=== PATIENT | female | born 1995 | race Caucasian/White ===

== ENCOUNTER 2020-12-12 09:36 | Emergency (ER) | payer OTHER ==
--- NOTE | 2020-12-12 10:13 | ERPHSYRPT ---
- History of Present Illness Source: patient Patient Subjective Stated Complaint: Pt states "I am having trouble urinating. I can pee a little in warm water like a bath but that is it." Triage Nursing Assessment: Pt presented alert and oriented X 3, skin pwd. Pt ambulates with an upright steady gait, able to speak in clear full sentences. Pt resting comfortably on the bed. Physician History: 25 yo wf w possible urinary retention x 2 days. Pt states that she has only urinated 4-5 times over the last 2 days. She denies abdominal/pelvic/flank pain/dysuria/hematuria/fever/. Pt states that she has some diarrhea. Madrigal placed per nursing wo difficulty w 200ml return. Timing/Duration: day(s) (2 days) Activites at Onset: none Quality: other (No pain) Onset Location: other (No pain) Pain Radiation: none Severity of Pain-Max: none Severity of Pain-Current: none Prior abdominal problems: none Sexual intercourse history: non-contributory Modifying Factors: Improves With: nothing Associated Symptoms: denies symptoms Allergies/Adverse Reactions: No Known Drug Allergies Allergy (Verified 12/12/20 09:48) Home Medications: propylthiouraciL [Propylthiouracil] 50 mg PO HS 12/12/20 [History] Hx Tetanus, Diphtheria Vaccination/Date Given: Yes Hx Influenza Vaccination/Date Given: No Hx Pneumococcal Vaccination/Date Given: No Travel Risk - International Travel Have you traveled outside of the country in past 3 weeks: No - Coronavirus Screening Are you exhibiting any of the following symptoms?: No Close contact with a COVID-19 positive Pt in past 14-21 Days: No - Vaccine Status Have you recieved a Covid-19 vaccination: No - Review of Systems Constitutional: No Symptoms Eyes: No Symptoms Ears, Nose, & Throat: No Symptoms Respiratory: No Symptoms Cardiac: No Symptoms Abdominal/Gastrointestinal: No Symptoms Genitourinary Symptoms: No Symptoms, Urinary Retention Musculoskeletal: No Symptoms Skin: No Symptoms Neurological: No Symptoms Psychological: No Symptoms Endocrine: No Symptoms Hematologic/Lymphatic: No Symptoms Immunological/Allergic: No Symptoms - Past Medical History Pertinent Past Medical History: Yes Endocrine Medical History: Hyperthyroidism - Past Surgical History Past Surgical History: No - Social History Smoking Status: Former smoker Exposure to second hand smoke: Yes Drug Use: none Patient Lives Alone: Yes Significant Family History: no pertinent family hx - Female History Hx Last Menstrual Period: 09/07/2020 Hx Now: (unknown) - Nursing Vital Signs Nursing Vital Signs: Initial Vital Signs Temperature 97.5 F 12/12/20 09:44 Pulse Rate 102 H 12/12/20 09:44 Respiratory Rate 20 12/12/20 09:44 Blood Pressure 142/74 12/12/20 09:44 O2 Sat by Pulse Oximetry 98 12/12/20 09:44 Pain Scale Pain Intensity 0 - Physical Exam General Appearance: no apparent distress Eye Exam: PERRL/EOMI Ears, Nose, Throat Exam: normal ENT inspection, TMs normal, pharynx normal, moist mucous membranes Neck Exam: normal inspection, non-tender Respiratory Exam: normal breath sounds, lungs clear, airway intact Cardiovascular Exam: regular rate/rhythm, normal heart sounds, No murmur Gastrointestinal/Abdomen Exam: soft, normal bowel sounds, distention, No tenderness Back Exam: normal inspection, normal range of motion, No CVA tenderness Extremity Exam: normal inspection, normal range of motion Neurologic Exam: alert, oriented x 3, cooperative, 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 tested, normal mood/affect, nml cerebellar function, nml station & gait, sensation nml, No motor deficits, No sensory deficit Skin Exam: normal color, warm, dry, No rash Lymphatic Exam: No adenopathy SpO2 Interpretation: normal SpO2: 98 O2 Delivery: Room Air - Course Nursing assessment & vital signs reviewed: Yes - Radiology Ultrasound Exam Pelvis Ultrasound: discussed w/radiologist (Neg/No IUP or adnexal mass) Ordered Tests: Active Orders 24 hr Category Date Time Status OB <14 WKS 1ST GESTATION [US] Stat Exams 12/12/20 10:26 Completed CULTURE,URINE Stat Lab 12/12/20 10:04 Received HCG, Quantitative (Inhouse) Stat Lab 12/12/20 11:20 Completed HCG,QUALITATIVE URINE Stat Lab 12/12/20 10:04 Completed UA W/RFX UR CULTURE Stat Lab 12/12/20 10:04 Completed Lab/Rad Data: Laboratory Results 12/12/20 12/12/20 12/12/20 Range/Units 11:20 10:04 10:04 Beta HCG, Quant 118.25 mIU/ml Urine Color YELLOW (YELLOW) Urine Appearance CLEAR (CLEAR) Urine pH 5.0 (5-6) Ur Specific [place] 1.033 (1.005-1.025) Urine Protein 30 (Negative) Urine Ketones TRACE (NEGATIVE) Urine Blood NEGATIVE (0-5) Onur/ul Urine Nitrite NEGATIVE (NEGATIVE) Urine Bilirubin NEGATIVE (NEGATIVE) Urine Urobilinogen 2 (0-1) mg/dL Ur Leukocyte Esterase NEGATIVE (NEGATIVE) Urine WBC (Auto) 3-5 (0-5) /HPF Urine RBC (Auto) 0-2 (0-2) /HPF U Epithel Cells (Auto) RARE (FEW) /HPF Urine Bacteria (Auto) FEW (NEGATIVE) /HPF Urine Mucus (Auto) SLIGHT (NEGATIVE) /HPF Urine Culture Reflexed ALREADY ORDERED (NO) Urine Glucose NEGATIVE (NEGATIVE) mg/dL Urine HCG, Qual POSITIVE (Negative) - Progress Counseled pt/family regarding: lab results, diagnosis, need for follow-up - Departure Departure Disposition: Home Clinical Impression: , Urinary tract infection Condition: Stable Critical Care Time: No Referrals: AMEYA BARBER [Primary Care Provider] - Instructions: Urinary Tract Infection, Adult (DC), Symptoms, Urinary Tract Infections in Additional Instructions: Follow up with an Ob-cotton breeder claire Return to ER for increasing abdominal pain or temperature greeater than 100.5 Prescriptions: Nitrofurantoin Monohyd/M-Cryst [Macrobid 100 mg Capsule] 100 mg PO BID #10 capsule
[2020-12-12 10:19] LABS: Appearance CLEAR (CLEAR); Bilirubin NEGATIVE (NEGATIVE); Blood NEGATIVE Ery/ul (0-5); Glucose NEGATIVE (NEGATIVE); Ketones TRACE (NEGATIVE); Leukocyte Esterase NEGATIVE (NEGATIVE); Mucus SLIGHT /HPF (NEGATIVE); Nitrite NEGATIVE (NEGATIVE); Protein,Urine Dip 30 (Negative); RBC 0-2 /HPF (0-2); Specific Gravity 1.033 (1.005-1.025); Urobilinogen 2 mg/dL (0-1)
[2020-12-12 10:20] LABS: Bacteria FEW /HPF (NEGATIVE); Epithelial Cells RARE /HPF (FEW)
--- NOTE | 2020-12-12 11:44 | XRAY ---
Indication: Urinary retention. Positive test. Two-dimensional transvaginal early OB ultrasound performed. Comparison: None Uterus anteverted without focal solid/cystic mass. Endometrial stripe measures 8.6 mm. No endometrial cavity mass or fluid collection. Right ovary measures 3.7 x 2.9 x 2.4 cm and the left measures 2.2 x 1.5 x 2.9 cm. Normal perfusion and follicular cysts bilaterally, largest cyst on left ovary measuring 2.4 cm. No suspicious adnexal mass or free fluid. Impression: Negative transvaginal early OB ultrasound. Correlate with serial beta hCG and follow-up sonogram regarding viability.
[2020-12-12 12:03] VITALS: O2SAT 98
[2020-12-12 12:05] VITALS: BP 138/89; PULSE 108
== END 2020-12-12 12:18 | disposition home or self-care (01) ==
LOC: ED 09:36
DX: O23.40 Unspecified infection of urinary tract in pregnancy, unspecified trimester (principal)
CPT/HCPCS: 36415; 76801; 81001; 84702; 84703; 87086; 99284

== ENCOUNTER 2021-01-09 17:13 | Emergency (ER) | payer OTHER ==
[2021-01-09 17:44] LABS: Absolute Neutrophil Ct (ANC) 4.05 (1.4-6.9); BASOPHIL % 0.2 % (0.0-0.4); Basophil (Absolute #) 0.01 (0-0.4); Eosinophil % 0.5 % (0.00-5.0); Eosinophil (Absolute #) 0.03 (0-0.5); Hematocrit 38.1 % (35-47); Hemoglobin 13.1 gm/dl (12.0-16.0); Lymphocyte (Absolute #) 1.88 (1.0-4.6); Lymphocytes % 28.8 % (24.0-44.0); Mean Cell Volume 84.7 fl (78-100); Mean Corpuscular Hemoglobin 29.1 pg (26-32); Mean Corpuscular Hgb Concent. 34.4 g/dl (32-36); Mean Platelet Volume 8.5 fl (7.5-11.0); Monocyte (Absolute #) 0.56 (0.0-1.3); Monocytes % 8.6 % (0.0-12.0); Neutrophil % 61.9 % (36.0-66.0); Platelet Count 250 K/mm3 (150-450); Red Cell Distribution Width 12.4 % (11.5-14.0); White Blood Count 6.5 K/mm3 (4.0-10.5)
--- NOTE | 2021-01-09 17:51 | ERPHSYRPT ---
- History of Present Illness Source: patient Patient Subjective Stated Complaint: Vaginal bleeding-8 weeks Triage Nursing Assessment: Patient ambulated back to ED and transferred self to bed. Patient A+O X3. Patient's skin pink, warm and dry. Patient states she is 8 weeks and started vaginal bleeding light pink scant amount one hour prior to coming to ED. Patient denies pain or discomfort. Physician History: 25 yo wf 8wks w IUP per US presents w vaginal bleeding described as less than a period x1hr. Pt denies pain/fever/dysuria/increased nausea- vomiting.Pt is Rh+ per her mother. US 12/28/20 6wks 2days IUP Timing/Duration: other (Before arrival) Quality: other (No pain) Onset Location: vaginal Pain Radiation: none Severity of Pain-Max: none Severity of Pain-Current: none Prior abdominal problems: none Sexual intercourse history: non-contributory () Modifying Factors: Improves With: nothing Associated Symptoms: denies symptoms, nausea Allergies/Adverse Reactions: No Known Drug Allergies Allergy (Verified 01/09/21 17:20) Home Medications: propylthiouraciL [Propylthiouracil] 50 mg PO HS 12/12/20 [History] Ondansetron ODT 4 MG [Zofran Odt 4 mg] 1 tab PO Q4-6HPRN PRN 01/09/21 [History] Vit37/Iron/Folic Acid [Prenata Chewable Tablet] 1 tab PO DAILY 01/09/21 [History] Hx Tetanus, Diphtheria Vaccination/Date Given: Yes Hx Influenza Vaccination/Date Given: No Hx Pneumococcal Vaccination/Date Given: No Travel Risk - International Travel Have you traveled outside of the country in past 3 weeks: No - Coronavirus Screening Are you exhibiting any of the following symptoms?: No Close contact with a COVID-19 positive Pt in past 14-21 Days: No - Vaccine Status Have you recieved a Covid-19 vaccination: No - Review of Systems Constitutional: No Symptoms Eyes: No Symptoms Ears, Nose, & Throat: No Symptoms Respiratory: No Symptoms Cardiac: No Symptoms Abdominal/Gastrointestinal: No Symptoms Genitourinary Symptoms: Vaginal Bleeding (Scant) Musculoskeletal: No Symptoms Skin: No Symptoms Neurological: No Symptoms Psychological: No Symptoms Endocrine: No Symptoms Hematologic/Lymphatic: No Symptoms Immunological/Allergic: No Symptoms - Past Medical History Pertinent Past Medical History: Yes Neurological History: No Pertinent History ENT History: No Pertinent History Cardiac History: No Pertinent History Respiratory History: No Pertinent History Endocrine Medical History: Hyperthyroidism Musculoskeletal History: No Pertinent History GI Medical History: No Pertinent History History: No Pertinent History Psycho-Social History: No Pertinent History Female Reproductive Disorders: No Pertinent History - Past Surgical History Past Surgical History: No Neuro Surgical History: No Pertinent History Cardiac: No Pertinent History Respiratory: No Pertinent History Gastrointestinal: No Pertinent History Genitourinary: No Pertinent History Musculoskeletal: No Pertinent History Female Surgical History: No Pertinent History - Social History Smoking Status: Former smoker Exposure to second hand smoke: Yes Drug Use: none Patient Lives Alone: Yes Significant Family History: no pertinent family hx - Female History Hx Last Menstrual Period: unknown Hx Now: Yes Expected Date of Delivery: 08/21/21 - Nursing Vital Signs Nursing Vital Signs: Initial Vital Signs Temperature 98.0 F 01/09/21 17:23 Pulse Rate 129 H 01/09/21 17:23 Respiratory Rate 18 01/09/21 17:23 Blood Pressure 143/89 01/09/21 17:23 O2 Sat by Pulse Oximetry 99 01/09/21 17:23 Pain Scale Pain Intensity 0 - Physical Exam General Appearance: no apparent distress, anxiety Eye Exam: PERRL/EOMI, eyes nml inspection Ears, Nose, Throat Exam: normal ENT inspection, TMs normal, pharynx normal, moist mucous membranes Neck Exam: normal inspection, non-tender, supple, full range of motion, No meningismus, No mass, No Brudzinski, No Kernig's Respiratory Exam: normal breath sounds, lungs clear, airway intact Cardiovascular Exam: tachycardia Gastrointestinal/Abdomen Exam: soft, normal bowel sounds, No tenderness, No distention Back Exam: normal inspection, normal range of motion, No CVA tenderness, No vertebral tenderness Extremity Exam: normal inspection, normal range of motion Neurologic Exam: alert, oriented x 3, cooperative, 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 tested, normal mood/affect Skin Exam: normal color Lymphatic Exam: No adenopathy SpO2 Interpretation: normal SpO2: 99 O2 Delivery: Room Air - Course Nursing assessment & vital signs reviewed: Yes Ordered Tests: Active Orders 24 hr Category Date Time Status CBC W DIFF Stat Lab 01/09/21 17:30 Completed CULTURE,URINE Stat Lab 01/09/21 17:30 Received HCG, Quantitative (Inhouse) Stat Lab 01/09/21 17:30 Completed UA W/RFX UR CULTURE Stat Lab 01/09/21 17:30 Completed Lab/Rad Data: Laboratory Result Diagrams 01/09/21 17:30 Laboratory Results 01/09/21 01/09/21 01/09/21 Range/Units 17:30 17:30 17:30 WBC 6.5 (4.0-10.5) K/mm3 RBC 4.50 (4.1-5.4) M/mm3 Hgb 13.1 (12.0-16.0) gm/dl Hct 38.1 (35-47) % MCV 84.7 (78-100) fl MCH 29.1 (26-32) pg MCHC 34.4 (32-36) g/dl RDW 12.4 (11.5-14.0) % Plt Count 250 (150-450) K/mm3 MPV 8.5 (7.5-11.0) fl Gran % 61.9 (36.0-66.0) % Eos # (Auto) 0.03 (0-0.5) Absolute Lymphs (auto) 1.88 (1.0-4.6) Absolute Monos (auto) 0.56 (0.0-1.3) Lymphocytes % 28.8 (24.0-44.0) % Monocytes % 8.6 (0.0-12.0) % Eosinophils % 0.5 (0.00-5.0) % Basophils % 0.2 (0.0-0.4) % Absolute Granulocytes 4.05 (1.4-6.9) Basophils # 0.01 (0-0.4) Beta HCG, Quant 172604 mIU/ml Urine Color YELLOW (YELLOW) Urine Appearance TURBID (CLEAR) Urine pH 5.0 (5-6) Ur Specific [place] 1.028 (1.005-1.025) Urine Protein 100 (Negative) Urine Ketones TRACE (NEGATIVE) Urine Blood LARGE (0-5) Onur/ul Urine Nitrite NEGATIVE (NEGATIVE) Urine Bilirubin SMALL (NEGATIVE) Urine Urobilinogen 4 (0-1) mg/dL Ur Leukocyte Esterase MODERATE (NEGATIVE) Urine WBC (Auto) 3-5 (0-5) /HPF Urine RBC (Auto) NONE (0-2) /HPF U Epithel Cells (Auto) FEW (FEW) /HPF Urine Bacteria (Auto) FEW (NEGATIVE) /HPF Amorphous Crystals MODERATE (NEGATIVE) /HPF Urine Mucus (Auto) MANY (NEGATIVE) /HPF Urine Culture Reflexed YES (NO) Urine Glucose NEGATIVE (NEGATIVE) mg/dL - Progress Progress Note: 01/09/21 18:57 US 01/10/21 9:30 Counseled pt/family regarding: lab results - Departure Departure Disposition: Home Clinical Impression: First trimester bleeding, Urinary tract infection Condition: Stable Critical Care Time: No Referrals: AMEYA BARBER [Primary Care Provider] - Instructions: Threatened Miscarriage (DC), Bleeding With (DC) Additional Instructions: Ultrasound tomorrow 04/12/21 9:30, arrive at 9:10 Return to ER for increasing pain or soaking through greater than 3 pads in 1hour Prescriptions: Nitrofurantoin Monohyd/M-Cryst [Macrobid 100 mg Capsule] 100 mg PO BID #10 capsule
[2021-01-09 18:00] LABS: Amourphous Crystal MODERATE /HPF (NEGATIVE); Appearance TURBID (CLEAR); Bacteria FEW /HPF (NEGATIVE); Bilirubin SMALL (NEGATIVE); Blood LARGE Ery/ul (0-5); Epithelial Cells FEW /HPF (FEW); Glucose NEGATIVE (NEGATIVE); Ketones TRACE (NEGATIVE); Leukocyte Esterase MODERATE (NEGATIVE); Mucus MANY /HPF (NEGATIVE); Nitrite NEGATIVE (NEGATIVE); Protein,Urine Dip 100 (Negative); Specific Gravity 1.028 (1.005-1.025); Urobilinogen 4 mg/dL (0-1)
[2021-01-09 18:42] VITALS: BP 124/78; PULSE 91
[2021-01-09 18:46] VITALS: O2SAT 99
== END 2021-01-09 19:05 | disposition home or self-care (01) ==
LOC: ED 17:13
DX: O20.9 Hemorrhage in early pregnancy, unspecified (principal); O23.41 Unspecified infection of urinary tract in pregnancy, first trimester; Z3A.08 8 weeks gestation of pregnancy
CPT/HCPCS: 36415; 81001; 84702; 85025; 87086; 99283

== ENCOUNTER 2021-03-05 00:34 | Emergency (ER) | payer OTHER ==
[2021-03-05 00:59] VITALS: O2SAT 97
[2021-03-05 01:11] LABS: BASOPHIL % 0.1 % (0.0-0.4); Basophil (Absolute #) 0.01 (0-0.4); Eosinophil % 0.4 % (0.00-5.0); Eosinophil (Absolute #) 0.03 (0-0.5); Hematocrit 37.6 % (35-47); Hemoglobin 12.8 gm/dl (12.0-16.0); Lymphocyte (Absolute #) 1.83 (1.0-4.6); Lymphocytes % 22.6 % (24.0-44.0); Mean Cell Volume 86.8 fl (78-100); Mean Corpuscular Hemoglobin 29.6 pg (26-32); Mean Platelet Volume 8.9 fl (7.5-11.0); Monocyte (Absolute #) 0.44 (0.0-1.3); Monocytes % 5.4 % (0.0-12.0); Neutrophil % 71.5 % (36.0-66.0); Platelet Count 243 K/mm3 (150-450); Red Blood Count 4.33 M/mm3 (4.1-5.4); Red Cell Distribution Width 13.3 % (11.5-14.0); White Blood Count 8.1 K/mm3 (4.0-10.5)
[2021-03-05 01:18] LABS: Appearance CLEAR (CLEAR); Bacteria RARE /HPF (NEGATIVE); Bilirubin NEGATIVE (NEGATIVE); Blood NEGATIVE Ery/ul (0-5); Epithelial Cells RARE /HPF (FEW); Glucose NEGATIVE (NEGATIVE); Ketones NEGATIVE (NEGATIVE); Leukocyte Esterase TRACE (NEGATIVE); Mucus SLIGHT /HPF (NEGATIVE); Nitrite NEGATIVE (NEGATIVE); Protein,Urine Dip NEGATIVE (Negative); Specific Gravity 1.003 (1.005-1.025); Urobilinogen NEGATIVE mg/dL (0-1); WBC 0-2 /HPF (0-5)
--- NOTE | 2021-03-05 01:22 | ERPHSYRPT ---
- History of Present Illness Time Seen by Provider: 03/05/21 00:50 Source: patient Exam Limitations: no limitations Patient Subjective Stated Complaint: pt states she has had lower abd cramping and some dark red vaginal bleeding. approx 15 weeks . 1, para 0 Triage Nursing Assessment: pt alerta nd oriented, answers questions approp. pt ambulatory with steady gait noted. respirations nonlabored with lungs cta. abd soft, nontender. bowel sounds presnet x4. fht per dr rihcardson 160 Physician History: Is a 25-year-old 1 para 0 white female at approximately 15 weeks gestation who presents with a complaint of pressure in the lower abdomen and some dark red blood. She is seen by Dr. Johnson for care he had an ultrasound approximately a month and a half ago which was normal as far as the p lacenta and other structures. Timing/Duration: today Activites at Onset: none Quality: cramping Onset Location: suprapubic Pain Radiation: none Severity of Pain-Max: mild Severity of Pain-Current: mild Prior abdominal problems: none Sexual intercourse history: non-contributory Modifying Factors: Improves With: nothing Associated Symptoms: denies symptoms Allergies/Adverse Reactions: No Known Drug Allergies Allergy (Verified 01/09/21 17:20) Home Medications: propylthiouraciL [Propylthiouracil] 50 mg PO HS 12/12/20 [History] Ondansetron ODT 4 MG [Zofran Odt 4 mg] 1 tab PO Q4-6HPRN PRN 01/09/21 [History] Vit37/Iron/Folic Acid [Prenata Chewable Tablet] 1 tab PO DAILY 01/09/21 [History] Hx Tetanus, Diphtheria Vaccination/Date Given: Yes Hx Influenza Vaccination/Date Given: No Hx Pneumococcal Vaccination/Date Given: No Travel Risk - International Travel Have you traveled outside of the country in past 3 weeks: No - Coronavirus Screening Are you exhibiting any of the following symptoms?: No Close contact with a COVID-19 positive Pt in past 14-21 Days: No - Vaccine Status Have you recieved a Covid-19 vaccination: No - Review of Systems Constitutional: No Fever, No Chills Eyes: No Symptoms Ears, Nose, & Throat: No Symptoms Respiratory: No Cough, No Dyspnea Cardiac: No Chest Pain, No Edema, No Syncope Abdominal/Gastrointestinal: No Abdominal Pain, No Nausea, No Vomiting, No Diarrhea Genitourinary Symptoms: No Dysuria Musculoskeletal: No Back Pain, No Neck Pain Skin: No Rash Neurological: No Dizziness, No Focal Weakness, No Sensory Changes Psychological: No Symptoms Endocrine: No Symptoms All Other Systems: Reviewed and Negative - Past Medical History Pertinent Past Medical History: Yes Neurological History: No Pertinent History ENT History: No Pertinent History Cardiac History: No Pertinent History Respiratory History: No Pertinent History Endocrine Medical History: Hyperthyroidism Musculoskeletal History: No Pertinent History GI Medical History: No Pertinent History History: No Pertinent History Psycho-Social History: No Pertinent History Female Reproductive Disorders: No Pertinent History - Past Surgical History Past Surgical History: No Neuro Surgical History: No Pertinent History Cardiac: No Pertinent History Respiratory: No Pertinent History Gastrointestinal: No Pertinent History Genitourinary: No Pertinent History Musculoskeletal: No Pertinent History Female Surgical History: No Pertinent History - Social History Smoking Status: Former smoker Exposure to second hand smoke: Yes Drug Use: none Patient Lives Alone: Yes Significant Family History: no pertinent family hx - Female History Hx Now: Yes Expected Date of Delivery: 08/21/21 Gestational Age: 15weeks - Nursing Vital Signs Nursing Vital Signs: Initial Vital Signs Respiratory Rate 18 03/05/21 00:41 Blood Pressure 141/92 03/05/21 00:41 O2 Sat by Pulse Oximetry 97 03/05/21 00:41 Pain Scale Pain Intensity 3 - Physical Exam General Appearance: no apparent distress, alert Eye Exam: PERRL/EOMI, eyes nml inspection Ears, Nose, Throat Exam: normal ENT inspection, TMs normal, pharynx normal, moist mucous membranes Neck Exam: normal inspection, non-tender, supple, full range of motion Respiratory Exam: normal breath sounds, lungs clear, No respiratory distress Cardiovascular Exam: regular rate/rhythm, normal heart sounds, normal peripheral pulses Gastrointestinal/Abdomen Exam: soft, other ( heart tones +160), No tenderness, No mass Pelvic Exam: normal external exam, other (Cervix is long and closed very firm), No cervical motion tenderness Back Exam: normal inspection, normal range of motion, No CVA tenderness, No vertebral tenderness Extremity Exam: normal inspection, normal range of motion, pelvis stable Neurologic Exam: alert, oriented x 3, cooperative, 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-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 tested, normal mood/affect, sensation nml, No motor deficits Skin Exam: normal color, warm, dry Lymphatic Exam: No adenopathy SpO2 Interpretation: normal SpO2: 97 O2 Delivery: Room Air Ordered Tests: Active Orders 24 hr Category Date Time Status CBC W DIFF Stat Lab 03/05/21 01:07 Completed UA W/RFX UR CULTURE Stat Lab 03/05/21 00:59 Completed Lab/Rad Data: Laboratory Result Diagrams 03/05/21 01:07 Laboratory Results 03/05/21 03/05/21 Range/Units 01:07 00:59 WBC 8.1 (4.0-10.5) K/mm3 RBC 4.33 (4.1-5.4) M/mm3 Hgb 12.8 (12.0-16.0) gm/dl Hct 37.6 (35-47) % MCV 86.8 (78-100) fl MCH 29.6 (26-32) pg MCHC 34.0 (32-36) g/dl RDW 13.3 (11.5-14.0) % Plt Count 243 (150-450) K/mm3 MPV 8.9 (7.5-11.0) fl Gran % 71.5 H (36.0-66.0) % Eos # (Auto) 0.03 (0-0.5) Absolute Lymphs (auto) 1.83 (1.0-4.6) Absolute Monos (auto) 0.44 (0.0-1.3) Lymphocytes % 22.6 L (24.0-44.0) % Monocytes % 5.4 (0.0-12.0) % Eosinophils % 0.4 (0.00-5.0) % Basophils % 0.1 (0.0-0.4) % Absolute Granulocytes 5.80 (1.4-6.9) Basophils # 0.01 (0-0.4) Urine Color STRAW (YELLOW) Urine Appearance CLEAR (CLEAR) Urine pH 6.0 (5-6) Ur Specific [place] 1.003 (1.005-1.025) Urine Protein NEGATIVE (Negative) Urine Ketones NEGATIVE (NEGATIVE) Urine Blood NEGATIVE (0-5) Onur/ul Urine Nitrite NEGATIVE (NEGATIVE) Urine Bilirubin NEGATIVE (NEGATIVE) Urine Urobilinogen NEGATIVE (0-1) mg/dL Ur Leukocyte Esterase TRACE (NEGATIVE) Urine WBC (Auto) 0-2 (0-5) /HPF Urine RBC (Auto) NONE (0-2) /HPF U Epithel Cells (Auto) RARE (FEW) /HPF Urine Bacteria (Auto) RARE (NEGATIVE) /HPF Urine Mucus (Auto) SLIGHT (NEGATIVE) /HPF Urine Culture Reflexed NO (NO) Urine Glucose NEGATIVE (NEGATIVE) mg/dL - Progress Progress: unchanged Air Movement: good Blood Culture(s) Obtained: No Antibiotics given: No - Departure Departure Disposition: Home Clinical Impression: First trimester bleeding Condition: Stable Critical Care Time: No Referrals: AMEYA BARBER [Primary Care Provider] - Instructions: Threatened Miscarriage (DC)
[2021-03-05 01:59] VITALS: BP 117/76; PULSE 87
== END 2021-03-05 02:08 | disposition home or self-care (01) ==
LOC: ED 00:34
DX: O72.1 Other immediate postpartum hemorrhage (principal); Z3A.15 15 weeks gestation of pregnancy
CPT/HCPCS: 36415; 81001; 85025; 99283

== ENCOUNTER 2021-06-02 19:31 | Emergency (ER) | payer OTHER ==
[2021-06-02 20:20] LABS: Appearance CLOUDY (CLEAR); Bacteria MODERATE /HPF (NEGATIVE); Bilirubin NEGATIVE (NEGATIVE); Blood NEGATIVE Ery/ul (0-5); Epithelial Cells RARE /HPF (FEW); Glucose NEGATIVE (NEGATIVE); Ketones NEGATIVE (NEGATIVE); Leukocyte Esterase MODERATE (NEGATIVE); Mucus SLIGHT /HPF (NEGATIVE); Nitrite NEGATIVE (NEGATIVE); Protein,Urine Dip NEGATIVE (Negative); Specific Gravity 1.015 (1.005-1.025); Urobilinogen NEGATIVE mg/dL (0-1)
--- NOTE | 2021-06-02 20:32 | ERPHSYRPT ---
- History of Present Illness Source: patient Exam Limitations: no limitations Patient Subjective Stated Complaint: pt states "I took my tempature at 1100 today and it was 100.4. I took it again at 1630 and it said 101.1. I don't trust those infrared thermometers." Triage Nursing Assessment: pt ambulated into the er; pt is axo x4; c/o fever; pt states highest fever at home 101.1; pt denies cough; pt denies N/V/D; pt has no other complaints at this time; clear lung sounds in all lobes; active bowel sounds in all quads; 28 weeks gestation; afebrile; vitals wnl; urine yellow and cloudy Physician History: 25 yo WF 19 wks w fever today. Pt denies cough/coryza/ST/N/V/D/dysuria/hematuria/vag bleeding/vag dc. Timing/Duration: today Fever Severity: mild Fever Therapy DORMITORY KEEPER: none Associated Symptoms: No abdominal pain, No chest pain, No confusion, No cough, No diaphoresis, No headache, No muscle aches, No nausea/vomiting, No rash, No rh inorrhea, No shortness of breath, No sore throat, No stiff neck, No syncope, No weakness Allergies/Adverse Reactions: No Known Drug Allergies Allergy (Verified 06/02/21 19:51) Home Medications: Vit37/Iron/Folic Acid [Prenata Chewable Tablet] 1 tab PO DAILY 01/09/21 [History] Methimazole [Northyx] 20 mg PO DAILY 06/02/21 [History] Hx Tetanus, Diphtheria Vaccination/Date Given: Yes Hx Influenza Vaccination/Date Given: No Hx Pneumococcal Vaccination/Date Given: No Travel Risk - International Travel Have you traveled outside of the country in past 3 weeks: No - Coronavirus Screening Are you exhibiting any of the following symptoms?: Yes Symptoms: Fever Close contact with a COVID-19 positive Pt in past 14-21 Days: No - Vaccine Status Have you recieved a Covid-19 vaccination: No - Review of Systems Constitutional: No Symptoms, Fever Eyes: No Symptoms Ears, Nose, & Throat: No Symptoms Respiratory: No Symptoms Cardiac: No Symptoms Abdominal/Gastrointestinal: No Symptoms Genitourinary Symptoms: No Symptoms Musculoskeletal: No Symptoms Skin: No Symptoms Neurological: No Symptoms Psychological: No Symptoms Endocrine: No Symptoms Hematologic/Lymphatic: No Symptoms Immunological/Allergic: No Symptoms - Past Medical History Pertinent Past Medical History: Yes Neurological History: No Pertinent History ENT History: No Pertinent History Cardiac History: No Pertinent History Respiratory History: No Pertinent History Endocrine Medical History: Hyperthyroidism Musculoskeletal History: No Pertinent History GI Medical History: No Pertinent History History: No Pertinent History Psycho-Social History: No Pertinent History Female Reproductive Disorders: No Pertinent History - Past Surgical History Past Surgical History: No Neuro Surgical History: No Pertinent History Cardiac: No Pertinent History Respiratory: No Pertinent History Gastrointestinal: No Pertinent History Genitourinary: No Pertinent History Musculoskeletal: No Pertinent History Female Surgical History: No Pertinent History - Social History Smoking Status: Former smoker Exposure to second hand smoke: Yes Drug Use: none Patient Lives Alone: Yes Significant Family History: no pertinent family hx - Female History Hx Now: Yes (28 weeks) - Nursing Vital Signs Nursing Vital Signs: Initial Vital Signs Temperature 98.9 F 06/02/21 19:52 Pulse Rate 90 06/02/21 19:52 Respiratory Rate 16 06/02/21 19:52 Blood Pressure 131/88 06/02/21 19:52 O2 Sat by Pulse Oximetry 99 06/02/21 19:52 Pain Scale Pain Intensity 0 WNL - Physical Exam General Appearance: no apparent distress Eye Exam: PERRL/EOMI, eyes nml inspection ENT Exam: normal ENT inspection, no apparent trauma, hearing grossly normal, TMs normal, pharynx normal Neck Exam: normal inspection, non-tender, supple, full range of motion, trachea midline, No Brudzinski's sign, No Kernig's sign Respiratory Exam: normal breath sounds, lungs clear, no respiratory distress Cardiovascular/Chest Exam: normal heart sounds, regular rate/rhythm, No murmur Gastrointestinal/Abdominal Exam: soft, non tender () Extremity Exam: non-tender, normal range of motion, normal inspection, normal capillary refill Neurologic Exam: alert, oriented x 3, cooperative, clip coater II-XII nml as tested, normal mood/affect, nml cerebellar function, nml station & gait, sensation nml Skin Exam: normal color, warm, dry Lymphatic: No adenopathy SpO2 Interpretation: normal SpO2: 99 O2 Delivery: Room Air - Course Nursing assessment & vital signs reviewed: Yes Ordered Tests: Active Orders 24 hr Category Date Time Status CULTURE,URINE Stat Lab 11/05/21 20:05 Received UA W/RFX UR CULTURE Stat Lab 06/02/21 20:05 Completed Lab/Rad Data: Laboratory Results 06/02/21 06/02/21 Range/Units 20:34 20:05 Urine Color YELLOW (YELLOW) Urine Appearance CLOUDY (CLEAR) Urine pH 6.0 (5-6) Ur Specific [place] 1.015 (1.005-1.025) Urine Protein NEGATIVE (Negative) Urine Ketones NEGATIVE (NEGATIVE) Urine Blood NEGATIVE (0-5) Onur/ul Urine Nitrite NEGATIVE (NEGATIVE) Urine Bilirubin NEGATIVE (NEGATIVE) Urine Urobilinogen NEGATIVE (0-1) mg/dL Ur Leukocyte Esterase MODERATE (NEGATIVE) Urine WBC (Auto) 6-10 (0-5) /HPF Urine RBC (Auto) 3-5 (0-2) /HPF U Epithel Cells (Auto) RARE (FEW) /HPF Urine Bacteria (Auto) MODERATE (NEGATIVE) /HPF Urine Mucus (Auto) SLIGHT (NEGATIVE) /HPF Urine Culture Reflexed YES (NO) Urine Glucose NEGATIVE (NEGATIVE) mg/dL Influenza Type A Ag NEGATIVE (NEGATIVE) Influenza Type B Ag NEGATIVE (NEGATIVE) RSV (PCR) NEGATIVE (Negative) SARS-CoV-2 (PCR) NEGATIVE (NEGATIVE) - Progress Counseled pt/family regarding: lab results, diagnosis, need for follow-up - Departure Departure Disposition: Home Clinical Impression: UTI (urinary tract infection) Condition: Stable Critical Care Time: No Referrals: AMEYA BARBER MD [Primary Care Provider] - Follow up/PCP as directed Instructions: Urinary Tract Infection, Adult (DC), Fever, Adult (DC), Urinary Tract Infections in Additional Instructions: Fluids/Tylenol Start Macrobid twice a day Follow up with your Ob-Belt Cutter Prescriptions: Nitrofurantoin Monohyd/M-Cryst [Macrobid 100 mg Capsule] 100 mg PO BID #10
[2021-06-02 21:35] LABS: INFLUENZA A NEGATIVE (NEGATIVE); INFLUENZA B NEGATIVE (NEGATIVE); RESPIRATORY SYNCTIAL VIRUS NEGATIVE (Negative); SARS-CoV-2 Xpert Express NEGATIVE (NEGATIVE)
== END 2021-06-02 22:20 | disposition home or self-care (01) ==
LOC: ED 19:31
DX: N39.0 Urinary tract infection, site not specified (principal)
CPT/HCPCS: 0241U; 81001; 87086; 99283

== ENCOUNTER 2021-08-11 01:44 | Inpatient (IN) | payer OTHER ==
[2021-08-11] MEDS ORDERED: XYLOCAINE 1% HCL 20 ML MDV IJ PRN (07:40)
[2021-08-11] MEDS ORDERED: Zofran 4 MG/2 ML VIAL IV PRN (07:40)
[2021-08-11] MEDS ORDERED: Lactated Ringers 1,000 ML IV ONE (07:44)
[2021-08-11] MEDS ORDERED: Ephedrine Sulfate 50 MG/ML IV PRN (07:44)
[2021-08-11] MEDS ORDERED: FENTANYL 2 MCG-BUPIV 0.125%-NS 250 ML Epidur 250 ML EPIDURAL SCH (07:45)
[2021-08-11 08:29] LABS: Absolute Neutrophil Ct (ANC) 13.81 (1.4-6.9); Basophil (Absolute #) 0.01 (0-0.4); Eosinophil (Absolute #) 0 (0-0.5); Hematocrit 43.1 % (35-47); Hemoglobin 14.7 gm/dl (12.0-16.0); Lymphocyte (Absolute #) 0.97 (1.0-4.6); Lymphocytes % 6.4 % (24.0-44.0); Mean Cell Volume 94.5 fl (78-100); Mean Corpuscular Hemoglobin 32.2 pg (26-32); Mean Corpuscular Hgb Concent. 34.1 g/dl (32-36); Mean Platelet Volume 11.2 fl (7.5-11.0); Monocyte (Absolute #) 0.39 (0.0-1.3); Monocytes % 2.6 % (0.0-12.0); Neutrophil % 90.9 % (36.0-66.0); Platelet Count 160 K/mm3 (150-450); Red Blood Count 4.56 M/mm3 (4.1-5.4); Red Cell Distribution Width 12.7 % (11.5-14.0); White Blood Count 15.2 K/mm3 (4.0-10.5)
[2021-08-11 09:17] LABS: ABO TYPING A; Antibody Screen NEGATIVE (NEGATIVE); RH TYPING POSITIVE
[2021-08-11] MEDS ORDERED: TUCKS TP PRN (09:58)
[2021-08-11] MEDS ORDERED: Mylicon 80MG PO PRN (09:58)
[2021-08-11] MEDS ORDERED: LANSINOH 40 GM TOP PRN (09:58)
[2021-08-11] MEDS ORDERED: TYLENOL EXTRA STRENGTH 500 MG PO PRN (09:58)
[2021-08-11] MEDS ORDERED: MOTRIN 400 MG PO PRN (09:58)
[2021-08-11] MEDS ORDERED: Dermoplast Spray TP PRN (10:00)
[2021-08-11] MEDS ORDERED: Adacel Vial IM ONE (11:00)
[2021-08-11 12:27] LABS: Amphetamine,Urine NEGATIVE (NEGATIVE); Barbiturate,Urine NEGATIVE (NEGATIVE); Cocaine,Urine NEGATIVE (NEGATIVE); THC,Urine NEGATIVE (NEGATIVE)
[2021-08-11 12:48] LABS: Benzodiazepine,Urine NEGATIVE (NEGATIVE); Methadone,Urine NEGATIVE (NEGATIVE); Opiate,Urine NEGATIVE (NEGATIVE); PCP,Urine NEGATIVE (NEGATIVE)
[2021-08-11 14:19] VITALS: O2SAT 97
[2021-08-11] MEDS: Colace 100 MG PO SCH ×2 (20:43→20:44)
[2021-08-11] MEDS: FERREX 150 PO SCH (20:46)
[2021-08-12 06:13] LABS: Absolute Neutrophil Ct (ANC) 7.94 (1.4-6.9); Basophil (Absolute #) 0.01 (0-0.4); Eosinophil % 0.3 % (0.00-5.0); Eosinophil (Absolute #) 0.03 (0-0.5); Hematocrit 37.1 % (35-47); Hemoglobin 12.4 gm/dl (12.0-16.0); Lymphocyte (Absolute #) 2.57 (1.0-4.6); Lymphocytes % 22.9 % (24.0-44.0); Mean Cell Volume 96.1 fl (78-100); Mean Corpuscular Hemoglobin 32.1 pg (26-32); Mean Corpuscular Hgb Concent. 33.4 g/dl (32-36); Mean Platelet Volume 11.3 fl (7.5-11.0); Monocyte (Absolute #) 0.66 (0.0-1.3); Monocytes % 5.9 % (0.0-12.0); Neutrophil % 70.8 % (36.0-66.0); Platelet Count 159 K/mm3 (150-450); Red Blood Count 3.86 M/mm3 (4.1-5.4); Red Cell Distribution Width 12.8 % (11.5-14.0); White Blood Count 11.2 K/mm3 (4.0-10.5)
[2021-08-12] MEDS: FERREX 150 PO SCH (12:25)
[2021-08-12] MEDS: Colace 100 MG PO SCH ×2 (12:25→20:01)
[2021-08-12 14:36] LABS: HBsAg Screen Negative (Negative)
[2021-08-12] MEDS: PITOCIN 30 UNITS/ LR 500 ML 30 UNITS/500 ML PLAST..BAG IV SCH ×2 (20:38→20:45)
[2021-08-12] MEDS: Lactated Ringers 1,000 ML IV SCH ×4 (20:39→20:45)
--- NOTE | 2021-08-13 15:05 | PCM.DS ---
Discharge Summary Date of Admission: 08/11/21 07:44 Admitting Physician: FRAN PORTER Primary Care Provider: AMEYA BARBER Allergies Allergies No Known Drug Allergies Allergy (Verified 08/11/21 13:43) Hospital Summary - Hospital Course Hospital Course: patient arrived at 38+ wks [facility] in spontaneous labor, had an uncomplicated with second degree perineal laceration repair. and well bonded with infant, no problems . - Vitals & Intake/Output Vital Signs: Vital Signs Temperature 98.6 F 08/13/21 08:00 Pulse Rate 84 08/13/21 08:00 Respiratory Rate 18 08/13/21 08:00 Blood Pressure 116/68 08/13/21 08:00 O2 Sat by Pulse Oximetry 97 08/11/21 13:44 Intake & Output: Intake & Output 08/11/21 08/12/21 08/13/21 08/14/21 11:59 11:59 11:59 11:59 Intake Total 1340 300 Balance 1340 300 Weight 64.864 kg - Lab Result Diagrams: 08/12/21 05:15 Discharge Exam General Appearance: no apparent distress Neurologic Exam: alert, oriented x 3 Respiratory Exam: normal breath sounds, lungs clear, No respiratory distress Cardiovascular Exam: regular rate/rhythm, normal heart sounds Gastrointestinal/Abdomen Exam: soft, No tenderness, No mass Extremity Exam: normal inspection, normal range of motion Skin Exam: normal color, warm, dry Final Diagnosis/Problem List - Final Discharge Diagnosis/Problem (1) Normal vaginal delivery Current Visit: Yes Status: Acute Assessment & Plan: routine pp care continue, well. Code(s): O80 - ENCOUNTER FOR FULL-TERM UNCOMPLICATED DELIVERY (2) Second degree perineal laceration during delivery Current Visit: Yes Status: Acute Code(s): O70.1 - SECOND DEGREE PERINEAL LACERATION DURING DELIVERY - Discharge Disposition: Home, Self-Care Condition: Stable Prescriptions: Continue Vit37/Iron/Folic Acid [Prenata Chewable Tablet] 1 tab PO DAILY methIMAzole [Northyx] 20 mg PO DAILY Nitrofurantoin Monohyd/M-Cryst [Macrobid 100 mg Capsule] 100 mg PO BID #10 Follow up with: FRAN PORTER MD [ACTIVE STAFF] - 6 weeks
[2021-08-13 16:38] VITALS: BP 111/62; PULSE 81
== END 2021-08-13 16:05 | disposition home or self-care (01) | DRG 807 ==
LOC: OBSVTOIN 01:44 → INTOOBSV 01:44 → OB 01:44 → OBSVTOIN 07:44
PROVIDERS: ADMIT Family Medicine; ATTEND Family Medicine
PROC: 10E0XZZ Delivery of Products of Conception, External Approach (ICD-10-PCS; principal; 2021-08-11)
PROC: 0KQM0ZZ Repair Perineum Muscle, Open Approach (ICD-10-PCS; 2021-08-11)
DX: O70.1 Second degree perineal laceration during delivery (principal); Z37.0 Single live birth; Z3A.38 38 weeks gestation of pregnancy
CPT/HCPCS: 36415; 80307; 81003; 85025; 86850; 86900; 86901; 87340; 90471; G0378; A9270-GY

== ENCOUNTER 2022-12-05 12:00 | Emergency (ER) | payer OTHER ==
[2022-12-05 12:21] VITALS: O2SAT 99
--- NOTE | 2022-12-05 12:45 | ERPHSYRPT ---
- History of Present Illness Source: patient Exam Limitations: no limitations Patient Subjective Stated Complaint: Gynecology-IUD possibly misplaced Triage Nursing Assessment: Patient ambulated back to ED and transferred self to bed. Patient A+O X 3. Patient's skin pink, warm and dry. Patient states during intercourse last night her partner felt a pinch to the tip of his penis. Patient states she has been having vaginal bleeding for the past 3 days. Patient denies pain or discomfort. Patient concerned her IUD has moved. Physician History: 27 yo WF w possible IUD displacement. Pt states that her SO felt the IUD during sexual intercourse. Pt also has mild vaginal bleeding but denies any dysuria/hematuria/pain/fever/nausea/vomting/diarrhea. Also denies . Timing/Duration: yesterday Activites at Onset: sexual activity Quality: other (No pain) Pain Radiation: none Severity of Pain-Max: none Severity of Pain-Current: none Sexual intercourse history: single partner Modifying Factors: Improves With: nothing Associated Symptoms: denies symptoms, No vaginal discharge, No vaginal fluid leakage Allergies/Adverse Reactions: No Known Drug Allergies Allergy (Verified 12/05/22 12:13) Home Medications: methIMAzole [Northyx] 20 mg PO DAILY 06/02/21 [History] Buspirone HCl 10 mg PO BID 12/05/22 [History] Famotidine 1 tab PO DAILY 12/05/22 [History] Sertraline HCl [Zoloft] 1 tab PO DAILY 12/05/22 [History] Hx Tetanus, Diphtheria Vaccination/Date Given: Yes Hx Influenza Vaccination/Date Given: No Hx Pneumococcal Vaccination/Date Given: No Travel Risk - International Travel Have you traveled outside of the country in past 3 weeks: No - Coronavirus Screening Are you exhibiting any of the following symptoms?: No Close contact with a COVID-19 positive Pt in past 14-21 Days: No - Vaccine Status Have you recieved a Covid-19 vaccination: No - Review of Systems Constitutional: No Symptoms Eyes: No Symptoms Ears, Nose, & Throat: No Symptoms Respiratory: No Symptoms Cardiac: No Symptoms Abdominal/Gastrointestinal: No Symptoms Genitourinary Symptoms: No Symptoms, Vaginal Bleeding Musculoskeletal: No Symptoms Skin: No Symptoms Neurological: No Symptoms Psychological: No Symptoms Endocrine: No Symptoms Hematologic/Lymphatic: No Symptoms Immunological/Allergic: No Symptoms - Past Medical History Pertinent Past Medical History: Yes Neurological History: No Pertinent History ENT History: No Pertinent History Cardiac History: No Pertinent History Respiratory History: No Pertinent History Endocrine Medical History: Hyperthyroidism Musculoskeletal History: No Pertinent History GI Medical History: No Pertinent History History: No Pertinent History Psycho-Social History: Anxiety Female Reproductive Disorders: No Pertinent History Other Medical History: HEART PALPATIONS WHEN THYROID LEVELS ARE OFF. - Past Surgical History Past Surgical History: No Neuro Surgical History: No Pertinent History Cardiac: No Pertinent History Respiratory: No Pertinent History Gastrointestinal: No Pertinent History Genitourinary: No Pertinent History Musculoskeletal: No Pertinent History Female Surgical History: No Pertinent History - Social History Smoking Status: Never smoker Exposure to second hand smoke: No Drug Use: none Patient Lives Alone: No Significant Family History: no pertinent family hx - Female History Hx Last Menstrual Period: unknown-IUD Hx Now: No - Nursing Vital Signs Nursing Vital Signs: Initial Vital Signs Temperature 98.3 F 12/05/22 12:15 Pulse Rate 83 12/05/22 12:15 Respiratory Rate 18 12/05/22 12:15 Blood Pressure 138/93 12/05/22 12:15 O2 Sat by Pulse Oximetry 99 12/05/22 12:15 Pain Scale Pain Intensity 0 Mildly hypertensive - Physical Exam General Appearance: no apparent distress Eye Exam: PERRL/EOMI, eyes nml inspection Ears, Nose, Throat Exam: normal ENT inspection, TMs normal, pharynx normal, moist mucous membranes Neck Exam: normal inspection, non-tender, supple, full range of motion, No meningismus, No mass, No Brudzinski, No Kernig's, No carotid bruit Respiratory Exam: normal breath sounds, lungs clear, airway intact, No respiratory distress Cardiovascular Exam: regular rate/rhythm, normal heart sounds, normal peripheral pulses, capillary refill <2 sec, No murmur Gastrointestinal/Abdomen Exam: soft, normal bowel sounds, No tenderness Pelvic Exam: other (NL external/IUD string visualized w mild protrusion through cervix/Mild bleeding) Back Exam: normal inspection, normal range of motion Extremity Exam: normal inspection, normal range of motion Neurologic Exam: alert, oriented x 3, cooperative, linux consultant II-XII nml as tested, normal mood/affect, nml cerebellar function, nml station & gait, sensation nml, No motor deficits, No sensory deficit Skin Exam: normal color, warm, dry Lymphatic Exam: No adenopathy SpO2 Interpretation: normal SpO2: 99 O2 Delivery: Room Air - Course Nursing assessment & vital signs reviewed: Yes Ordered Tests: Active Orders 24 hr Category Date Time Status HCG QUALITATIVE, URINE Stat Lab 12/05/22 12:31 Completed UA W/RFX UR CULTURE Stat Lab 12/05/22 12:31 Completed Lab/Rad Data: Laboratory Results 12/05/22 12/05/22 Range/Units 12:31 12:31 Urine Color Yellow (Yellow) Urine Appearance Clear (Clear) Urine pH 6.5 (4.6-8.0) Ur Specific [place] 1.010 (1.005-1.030) Urine Protein Negative (Negative) Urine Glucose (UA) Negative (Negative) mg/dL Urine Ketones Negative (Negative) Urine Blood Large A (Negative) Urine Nitrite Negative (Negative) Urine Bilirubin Negative (Negative) Urine Urobilinogen 1.0 A (0.2) mg/dL Ur Leukocyte Esterase Trace A (Negative) U Hyaline Cast (Auto) NONE SEEN (0-2) /LPF Urine Microscopic RBC 0-2 (0-5) /HPF Urine Microscopic WBC 0-2 (0-5) /HPF Ur Epithelial Cells Few (None Seen) /HPF Urine Bacteria Rare A (None Seen) /HPF Urine Culture Reflexed NO (NO) Urine HCG, Qual NEGATIVE (NEGATIVE) - Progress Progress Note: 12/05/22 19:16 Nursing note and vital signs reviewed No food or housing insecurities noted Additional history per SO All lab results reviewed and shared w pt/SO IUD in place per PE Vaginal bleeding most likely due to period/Pt not and having no pain Counseled pt/family regarding: lab results, diagnosis, need for follow-up Medical Desision Making - Independent Historian Additional History obtained from: Spouse - Risk of complications Low Risk: Low risk of morbidity from additional dx testing or treatment - Departure Departure Disposition: Home Clinical Impression: Vaginal bleeding, IUD check up Condition: Stable Critical Care Time: No Referrals: AMEYA BARBER MD [Primary Care Provider] - Follow up/PCP as directed Instructions: Heavy Periods (DC), Intrauterine Devices (IUD) Additional Instructions: Follow up with Dr. Johnson Return to ER as needed
[2022-12-05 12:59] LABS: HCG URINE TEST NEGATIVE (NEGATIVE)
[2022-12-05 13:11] LABS: Appearance Clear (Clear); Bilirubin Negative (Negative); Blood Large (Negative); Glucose, Urine Negative (Negative); Hyaline Casts NONE SEEN /LPF (0-2); Ketones Negative (Negative); Leukocyte Esterase Trace (Negative); Nitrite Negative (Negative); Ph 6.5 (4.6-8.0); Protein,Urine Dip Negative (Negative); RBC 0-2 /HPF (0-5); WBC 0-2 /HPF (0-5)
[2022-12-05 13:12] LABS: ADD URINE CULTURE? NO (NO); Bacteria Rare /HPF (None Seen); Epithelial Cells Few /HPF (None Seen)
[2022-12-05 13:24] VITALS: BP 147/73; PULSE 62
== END 2022-12-05 13:40 | disposition home or self-care (01) ==
LOC: ED 12:00
DX: N93.9 Abnormal uterine and vaginal bleeding, unspecified (principal); Z30.8 Encounter for other contraceptive management; Z20.828 Contact with and (suspected) exposure to other viral communicable diseases
CPT/HCPCS: 81001; 81025; 99282

== ENCOUNTER 2024-06-14 20:49 | Observation (INO) | payer OTHER ==
[2024-06-14 21:15] VITALS: BP 119/68; PULSE 101; RESP 20; TEMP 98.7; O2SAT 98
[2024-06-14 21:23] LABS: Appearance Cloudy (Clear); Bacteria Moderate /HPF (None Seen); Bilirubin Negative (Negative); Blood Negative (Negative); Epithelial Cells Many /HPF (None Seen); Glucose, Urine Negative (Negative); Hyaline Casts NONE SEEN /LPF (0-2); Ketones Negative (Negative); Leukocyte Esterase Negative (Negative); Nitrite Negative (Negative); Ph 5.5 (4.6-8.0); Protein,Urine Dip Trace (Negative); RBC 0-2 /HPF (0-5)
[2024-06-14 21:32] LABS: AMNISURE TEST RESULTS NEGATIVE (NEGATIVE)
[2024-06-14 21:33] LABS: Amphetamine,Urine NEGATIVE (NEGATIVE); Barbiturate,Urine NEGATIVE (NEGATIVE); Benzodiazepine,Urine NEGATIVE (NEGATIVE); Cocaine,Urine NEGATIVE (NEGATIVE); Methadone,Urine NEGATIVE (NEGATIVE); Opiate,Urine NEGATIVE (NEGATIVE); PCP,Urine NEGATIVE (NEGATIVE); THC,Urine NEGATIVE (NEGATIVE)
== END 2024-06-14 22:00 | disposition home or self-care (01) ==
LOC: OB 20:49
PROVIDERS: ADMIT Family Medicine; ATTEND Family Medicine
DX: Z34.83 Encounter for supervision of other normal pregnancy, third trimester (principal); Z3A.33 33 weeks gestation of pregnancy
CPT/HCPCS: 80307; 81001; 84112; 87086; G0378; G0379

== ENCOUNTER 2024-07-17 18:49 | Inpatient (IN) | payer OTHER ==
[2024-07-17 19:38] LABS: Appearance Clear (Clear); Bacteria Moderate /HPF (None Seen); Bilirubin Negative (Negative); Blood Negative (Negative); Epithelial Cells Few /HPF (None Seen); Glucose, Urine Negative (Negative); Hyaline Casts NONE SEEN /LPF (0-2); Ketones 15 (Negative); Leukocyte Esterase Negative (Negative); Nitrite Negative (Negative); Ph 5.5 (4.6-8.0); Protein,Urine Dip Trace (Negative); RBC 0-2 /HPF (0-5); Specific Gravity >=1.030 (1.005-1.030)
[2024-07-17] MEDS ORDERED: Adacel Vial IM ONE (19:40)
[2024-07-17] MEDS ORDERED: MOTRIN 400 MG PO PRN (19:40)
[2024-07-17] MEDS ORDERED: Anucort-HC SUPPOSITORY PR PRN (19:40)
[2024-07-17] MEDS ORDERED: Zofran 4 MG/2 ML VIAL IV PRN (19:40)
[2024-07-17] MEDS ORDERED: Dulcolax 10 MG SUPP PR PRN (19:40)
[2024-07-17] MEDS ORDERED: TYLENOL EXTRA STRENGTH 500 MG PO PRN ×2 (19:40)
[2024-07-17] MEDS ORDERED: XYLOCAINE 1% HCL 20 ML MDV IJ PRN (19:40)
[2024-07-17] MEDS ORDERED: Mylicon 80MG PO PRN (19:40)
[2024-07-17] MEDS ORDERED: CORTISONE 1% CREAM TP PRN (19:40)
[2024-07-17 19:47] LABS: Amphetamine,Urine NEGATIVE (NEGATIVE); Barbiturate,Urine NEGATIVE (NEGATIVE); Benzodiazepine,Urine NEGATIVE (NEGATIVE); Cocaine,Urine NEGATIVE (NEGATIVE); Methadone,Urine NEGATIVE (NEGATIVE); Opiate,Urine NEGATIVE (NEGATIVE); PCP,Urine NEGATIVE (NEGATIVE); THC,Urine NEGATIVE (NEGATIVE)
[2024-07-17] MEDS ORDERED: Lactated Ringers 1,000 ML IV SCH (20:00)
[2024-07-17 20:12] LABS: Absolute Neutrophil Ct (ANC) 10.65 x10^3/uL (1.56-6.13); BASOPHIL % 0.2 % (0.1-1.2); Basophil (Absolute #) 0.02 x10^3/uL (0.01-0.08); Eosinophil % 0.1 % (0.7-5.8); Eosinophil (Absolute #) 0.01 x10^3/uL (0.04-0.36); Hematocrit 37.1 % (34.1-44.9); Hemoglobin 12.5 g/dL (11.2-15.7); IMMATURE GRAN % 0.8 % (0.001-0.429); Lymphocyte (Absolute #) 1.12 x10^3/uL (1.18-3.74); Mean Cell Volume 87.5 fL (79.4-94.8); Mean Corpuscular Hemoglobin 29.5 pg (25.6-32.2); Mean Corpuscular Hgb Concent. 33.7 g/dL (32.2-35.5); Mean Platelet Volume 10.8 fL (9.4-12.3); Monocyte (Absolute #) 0.49 x10^3/uL (0.24-0.86); Neutrophil % 85.9 % (34.0-71.1); Platelet Count 201 x10^3/uL (182-369); Red Blood Count 4.24 x10^6/uL (3.93-5.22); Red Cell Distribution Width 12.7 % (11.7-14.4); White Blood Count 12.4 x10^3/uL (3.98-10.04)
[2024-07-17] MEDS ORDERED: Lactated Ringers 1,000 ML IV ONE ×2 (20:30→20:48)
[2024-07-17] MEDS ORDERED: Ephedrine Sulfate 50 MG/ML IV PRN (20:37)
[2024-07-17] MEDS: FENTANYL 2 MCG-BUPIV 0.125%-NS 250 ML Epidur 250 ML EPIDURAL SCH (20:46)
[2024-07-17] MEDS: Lactated Ringers 1,000 ML IV ONE (20:47)
[2024-07-17 20:56] LABS: ABO TYPING A; Antibody Screen NEGATIVE (NEGATIVE); RH TYPING POSITIVE
[2024-07-17] MEDS: PITOCIN 30 UNITS/ LR 500 ML 30 UNITS/500 ML PLAST..BAG IV SCH (21:45)
[2024-07-17] MEDS: Dermoplast Spray TP PRN (23:19)
[2024-07-17] MEDS: LANSINOH 40 GM TOP PRN (23:19)
[2024-07-17] MEDS: TUCKS TP PRN (23:19)
[2024-07-18 04:42] LABS: Absolute Neutrophil Ct (ANC) 12.84 x10^3/uL (1.56-6.13); BASOPHIL % 0.1 % (0.1-1.2); Basophil (Absolute #) 0.02 x10^3/uL (0.01-0.08); Eosinophil (Absolute #) 0 x10^3/uL (0.04-0.36); Hematocrit 35.7 % (34.1-44.9); Hemoglobin 11.9 g/dL (11.2-15.7); IMMATURE GRAN % 0.7 % (0.001-0.429); Lymphocyte (Absolute #) 1.27 x10^3/uL (1.18-3.74); Lymphocytes % 8.3 % (19.3-51.7); Mean Cell Volume 88.8 fL (79.4-94.8); Mean Corpuscular Hemoglobin 29.6 pg (25.6-32.2); Mean Corpuscular Hgb Concent. 33.3 g/dL (32.2-35.5); Mean Platelet Volume 10.9 fL (9.4-12.3); Monocyte (Absolute #) 1.05 x10^3/uL (0.24-0.86); Monocytes % 6.9 % (4.7-12.5); Platelet Count 188 x10^3/uL (182-369); Red Blood Count 4.02 x10^6/uL (3.93-5.22); Red Cell Distribution Width 12.7 % (11.7-14.4); White Blood Count 15.3 x10^3/uL (3.98-10.04)
[2024-07-18 08:06] VITALS: RESP 16
[2024-07-18] MEDS: FERREX 150 PO SCH (09:30)
[2024-07-18] MEDS: Docusate Sodium 100 MG PO SCH (09:30)
[2024-07-18 15:16] VITALS: O2SAT 97
--- NOTE | 2024-07-18 15:57 | PCM.DS ---
Discharge Summary Date of Admission: 07/17/24 21:39 Admitting Physician: KEIRA CADENA DO Consults: Consults on Case 07/17/24 19:41 Notify Physician ROUTINE 07/17/24 20:37 Notify Anesthesia Provider PRN 07/18/24 09:58 Navigation ONCE Primary Care Provider: FRAN PORTER Allergies Allergies No Known Drug Allergies Allergy (Verified 12/05/22 12:13) Hospital Summary - Hospital Course Hospital Course: had an uncomplicated term delivery at 38wks, minimal blood loss, no issues , mild lochia, and doing great - Vitals & Intake/Output Vital Signs: Vital Signs Temperature 98.4 F 07/18/24 14:00 Pulse Rate 98 H 07/18/24 14:00 Respiratory Rate 16 07/18/24 14:00 Blood Pressure 114/62 07/18/24 14:00 O2 Sat by Pulse Oximetry 97 07/18/24 14:00 Intake & Output: Intake & Output 07/16/24 07/17/24 07/18/24 07/19/24 11:59 11:59 11:59 11:59 Weight 76.204 kg - Lab Result Diagrams: 07/18/24 04:35 Lab Results-Last 24 Hrs: Lab Results-Last 24 Hours 07/17/24 07/17/24 07/17/24 Range/Units 18:49 18:49 19:55 WBC 12.4 H (3.98-10.04) x10^3/uL RBC 4.24 (3.93-5.22) x10^6/uL Hgb 12.5 (11.2-15.7) g/dL Hct 37.1 (34.1-44.9) % MCV 87.5 (79.4-94.8) fL MCH 29.5 (25.6-32.2) pg MCHC 33.7 (32.2-35.5) g/dL RDW 12.7 (11.7-14.4) % Plt Count 201 (182-369) x10^3/uL MPV 10.8 (9.4-12.3) fL Gran % 85.9 H (34.0-71.1) % Immature Gran % (Auto) 0.8 H (0.001-0.429) % Nucleat RBC Rel Count 0.0 (0.00-0.2) % Eos # (Auto) 0.01 L (0.04-0.36) x10^3/uL Immature Gran # (Auto) 0.10 H (0.001-0.031) x10^3u/L Absolute Lymphs (auto) 1.12 L (1.18-3.74) x10^3/uL Absolute Monos (auto) 0.49 (0.24-0.86) x10^3/uL Absolute Nucleated RBC 0.00 (0.00-0.012) x10^3u/L Lymphocytes % 9.0 L (19.3-51.7) % Monocytes % 4.0 L (4.7-12.5) % Eosinophils % 0.1 L (0.7-5.8) % Basophils % 0.2 (0.1-1.2) % Absolute Granulocytes 10.65 H (1.56-6.13) x10^3/uL Basophils # 0.02 (0.01-0.08) x10^3/uL Urine Color Yellow (Yellow) Urine Appearance Clear (Clear) Urine pH 5.5 (4.6-8.0) Ur Specific [place] >=1.030 A (1.005-1.030) Urine Protein Trace A (Negative) Urine Glucose (UA) Negative (Negative) mg/dL Urine Ketones 15 A (Negative) Urine Blood Negative (Negative) Urine Nitrite Negative (Negative) Urine Bilirubin Negative (Negative) Urine Urobilinogen 1.0 A (0.2) mg/dL Ur Leukocyte Esterase Negative (Negative) U Hyaline Cast (Auto) NONE SEEN (0-2) /LPF Urine Microscopic RBC 0-2 (0-5) /HPF Urine Microscopic WBC 3-5 (0-5) /HPF Ur Epithelial Cells Few (None Seen) /HPF Urine Bacteria Moderate A (None Seen) /HPF Urine Culture Reflexed YES (NO) Urine Opiates Level NEGATIVE (NEGATIVE) Ur Methadone NEGATIVE (NEGATIVE) Urine Barbiturates NEGATIVE (NEGATIVE) Ur Phencyclidine (PCP) NEGATIVE (NEGATIVE) Urine Amphetamine NEGATIVE (NEGATIVE) U Benzodiazepine Level NEGATIVE (NEGATIVE) Urine Cocaine NEGATIVE (NEGATIVE) Urine Marijuana (THC) NEGATIVE (NEGATIVE) ABO Group Rh Factor Antibody Screen (NEGATIVE) 07/17/24 07/18/24 Range/Units 19:55 04:35 WBC 15.3 H (3.98-10.04) x10^3/uL RBC 4.02 (3.93-5.22) x10^6/uL Hgb 11.9 (11.2-15.7) g/dL Hct 35.7 (34.1-44.9) % MCV 88.8 (79.4-94.8) fL MCH 29.6 (25.6-32.2) pg MCHC 33.3 (32.2-35.5) g/dL RDW 12.7 (11.7-14.4) % Plt Count 188 (182-369) x10^3/uL MPV 10.9 (9.4-12.3) fL Gran % 84.0 H (34.0-71.1) % Immature Gran % (Auto) 0.7 H (0.001-0.429) % Nucleat RBC Rel Count 0.0 (0.00-0.2) % Eos # (Auto) 0 L (0.04-0.36) x10^3/uL Immature Gran # (Auto) 0.10 H (0.001-0.031) x10^3u/L Absolute Lymphs (auto) 1.27 (1.18-3.74) x10^3/uL Absolute Monos (auto) 1.05 H (0.24-0.86) x10^3/uL Absolute Nucleated RBC 0.00 (0.00-0.012) x10^3u/L Lymphocytes % 8.3 L (19.3-51.7) % Monocytes % 6.9 (4.7-12.5) % Eosinophils % 0.0 L (0.7-5.8) % Basophils % 0.1 (0.1-1.2) % Absolute Granulocytes 12.84 H (1.56-6.13) x10^3/uL Basophils # 0.02 (0.01-0.08) x10^3/uL Urine Color (Yellow) Urine Appearance (Clear) Urine pH (4.6-8.0) Ur Specific [place] (1.005-1.030) Urine Protein (Negative) Urine Glucose (UA) (Negative) mg/dL Urine Ketones (Negative) Urine Blood (Negative) Urine Nitrite (Negative) Urine Bilirubin (Negative) Urine Urobilinogen (0.2) mg/dL Ur Leukocyte Esterase (Negative) U Hyaline Cast (Auto) (0-2) /LPF Urine Microscopic RBC (0-5) /HPF Urine Microscopic WBC (0-5) /HPF Ur Epithelial Cells (None Seen) /HPF Urine Bacteria (None Seen) /HPF Urine Culture Reflexed (NO) Urine Opiates Level (NEGATIVE) Ur Methadone (NEGATIVE) Urine Barbiturates (NEGATIVE) Ur Phencyclidine (PCP) (NEGATIVE) Urine Amphetamine (NEGATIVE) U Benzodiazepine Level (NEGATIVE) Urine Cocaine (NEGATIVE) Urine Marijuana (THC) (NEGATIVE) ABO Group A Rh Factor POSITIVE Antibody Screen NEGATIVE (NEGATIVE) Micro Results-Entire Visit: Microbiology 07/17/24 18:49 Urine Culture - Preliminary Clean Catch Midstream NO GROWTH TO DATE Discharge Exam General Appearance: no apparent distress Neurologic Exam: alert Respiratory Exam: normal breath sounds, lungs clear, No respiratory distress Cardiovascular Exam: regular rate/rhythm, normal heart sounds Gastrointestinal/Abdomen Exam: soft, No tenderness, No mass Extremity Exam: normal inspection, normal range of motion Skin Exam: normal color, warm, dry Final Diagnosis/Problem List - Final Discharge Diagnosis/Problem (1) Normal vaginal delivery Current Visit: No Status: Acute Code(s): O80 - ENCOUNTER FOR FULL-TERM UNCOMPLICATED DELIVERY (2) (infant) Current Visit: Yes Status: Acute Code(s): Z78.9 - OTHER SPECIFIED HEALTH STATUS - Discharge Disposition: Home, Self-Care Condition: Stable Prescriptions: Continue methIMAzole [Northyx] 10 mg PO DAILY Follow up with: FRAN PORTER MD [Primary Care Provider] - 6 weeks
[2024-07-18 19:37] VITALS: BP 98/59; PULSE 97; TEMP 99.6
[2024-07-19 10:23] LABS: RPR Non Reactive (Non Reactive)
== END 2024-07-18 22:05 | disposition home or self-care (01) | DRG 807 ==
LOC: OB 18:49 → OBSVTOIN 21:39 → OB 07-18 04:18
PROVIDERS: ADMIT Obstetrics & Gynecology; ATTEND Obstetrics & Gynecology
PROC: 10E0XZZ Delivery of Products of Conception, External Approach (ICD-10-PCS; principal; 2024-07-17)
DX: O69.81X0 Labor and delivery complicated by cord around neck, without compression, not applicable or unspecified (principal); Z37.0 Single live birth; Z3A.38 38 weeks gestation of pregnancy
CPT/HCPCS: 36415; 80307; 81001; 85025; 86592; 86850; 86900; 86901; 87086; J2590; A9270-GY